=== PATIENT | male | born 1970 | race Caucasian/White ===

== ENCOUNTER → 2021-08-29 | Outpatient (CLI) | payer OTHER, SELFPAY ==
--- NOTE | 2021-08-29 08:15 | RAD_ITS ---
EXAMINATION: Air-contrast upper GI series and small bowel follow-through examination. INDICATION: Male, 51 years dysphagia for solids. FLUOROSCOPY TIME (if supplied): (1:36) minutes/seconds. 20 one images were obtained. TECHNIQUE: Radiographic and fluoroscopic images of the distal esophagus, stomach, and proximal small intestine were obtained following the oral ingestion of barium. COMPARISON: None. FINDINGS: There is no evidence for organomegaly, abnormal calcifications, or abnormal bowel gas pattern. The psoas margins and flank stripes are normal. Degenerative changes of the visualized thoracic spine. There is evidence of tertiary contractions of the esophagus. There is a 8.8 mm x 7.8 mm traction diverticulum in the midportion of the esophagus. Diffuse circumferential wall narrowing of the distal esophagus at the level of the gastroesophageal junction. Correlation with endoscopy is recommended for further evaluation. The ingested 12 mm tablet that barium is trapped at the site of the stricture. The remainder of the stomach and duodenum are unremarkable. A small bowel follow-through examination was obtained. The transit time is normal. The terminal ileum is unremarkable. 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 Circumferential wall thickening of the distal esophagus at the level of the gastroesophageal junction with trapping of the 12 mm tablet of barium. Correlation with endoscopy is recommended. Electronically Signed: Ady Giron MD at 14:36 EDT ,
== END | disposition home or self-care (01) ==
LOC: RAD 08:00
PROVIDERS: PCP Surgery; Visit Provider Physician Assistant
DX: R13.19 Other dysphagia (principal); R63.4 Abnormal weight loss
CPT/HCPCS: 74246; 74248